=== PATIENT | male | born 1970 | race Caucasian/White ===

== ENCOUNTER 2017-10-02 22:52 | Emergency (ER) | payer BC, OTHER ==
[~2017-10-02] VITALS: Ht 172.7 cm; Wt 122.6 kg
[2017-10-02] MEDS ORDERED: DEXAMETHASONE 4 MG TABLET ONE (23:23)
[2017-10-02] MEDS ORDERED: DIPHENHYDRAMINE 25 MG CAPSULE ONE (23:23)
[2017-10-02] MEDS ORDERED: DIPHENHYDRAMINE 25 MG CAPSULE PO ONE (23:30)
[2017-10-02] MEDS ORDERED: DEXAMETHASONE 4 MG TABLET PO ONE (23:30)
[2017-10-03 00:03] VITALS: BP 117/71
== END 2017-10-03 00:30 | disposition home or self-care (01) ==
LOC: ED 23:59
DX: R59.1 Generalized enlarged lymph nodes (principal); Z90.49 Acquired absence of other specified parts of digestive tract
CPT/HCPCS: 99283; Q0163